=== PATIENT | female | born 1985 | race Caucasian/White ===

== ENCOUNTER 2023-08-05 22:57 | Emergency (ER) | payer SELFPAY ==
[~2023-08-05] VITALS: Ht 162.6 cm; Wt 82.0 kg
[2023-08-05 23:11] VITALS: BP 117/75; PULSE 68; RESP 18; TEMP 98.2; O2SAT 99
== END 2023-08-05 23:32 | disposition left against medical advice (07) ==
LOC: ER 22:57
DX: Z76.89 Persons encountering health services in other specified circumstances (principal); Z53.21 Procedure and treatment not carried out due to patient leaving prior to being seen by health care provider
CPT/HCPCS: 99281